=== PATIENT | female | born 2000 | race Caucasian/White ===

== ENCOUNTER 2021-03-28 09:10 | Emergency (ER) | payer MEDICAID ==
[~2021-03-28] VITALS: Ht 154.9 cm; Wt 61.2 kg
[2021-03-28 09:27] VITALS: BP 116/72
--- NOTE | 2021-03-28 09:32 | NUR ---
PT AMB TO BED 2
[2021-03-28] MEDS ORDERED: ACETAMINOPHEN EXTRA STRENGTH 500 MG TAB PO ONE (10:00)
[2021-03-28] MEDS ORDERED: FAMOTIDINE 20 MG TAB PO ONE (10:00)
--- NOTE | 2021-03-28 10:14 | NUR ---
21YO F BIB SELF C/O SUDDEN ONSET ABDOMINAL PAIN THAT RADIATES TO LOWER BACK/FLANK AREA. PAIN 9/10, SHARP. DENIES ANY PROBLEMS URINATING. DENIES N/V/D. DENIES ANY HX OF PREVIOUS INJURY OR ILLNESS. PATIENT STATES TO TAKE PEPTO AND TYLENOL WITH NO PAIN RELIEF, LAST TAKEN LAST NIGHT. LAST MENSTRUAL CYCLE WAS LAST MONTH. IN ED, VSS. ABDOMEN SOFT, NONTENDER. PT POSITIONED IN BED COMFORTABLY. ERMD MADE AWARE OF PT STATUS. PMH: NONE NKA
[2021-03-28 10:26] LABS: BASOPHILS % (AUTO) 0.4 % (0.0-2.0); EOSINOPHILS % (AUTO) 0.4 % (0.0-4.0); HEMATOCRIT 40.4 % (36-48); HEMOGLOBIN 13.7 g/dL (12.0-16.0); LYMPHOCYTES # (AUTO) 1.3 K/uL (2.5-16.5); LYMPHOCYTES % (AUTO) 11.8 % (20.5-51.1); MEAN CORPUSCULAR HEMOGLOBIN 32 pg (27-31); MEAN CORPUSCULAR HGB CONC 34 g/dL (33-37); MEAN CORPUSCULAR VOLUME 92.9 fL (80-94); MONOCYTES # (AUTO) 0.5 K/uL (0.8-1.0); MONOCYTES % (AUTO) 4.8 % (1.7-9.3); NEUTROPHILS # (AUTO) 9.1 K/uL (1.8-7.7); NEUTROPHILS % (AUTO) 82.6 % (42.2-75.2); PLATELET COUNT (AUTO) 250 K/uL (140-450); RED BLOOD CELL COUNT(AUTO) 4.35 MIL/uL (4.20-5.40); RED CELL DISTRIBUTION WIDTH 12.9 % (11.6-13.7); WHITE BLOOD COUNT (AUTO) 11.1 K/uL (4.5-11.0)
[2021-03-28 10:37] LABS: APPEARANCE,URINE CLOUDY (CLEAR); BILIRUBIN,URINE NEGATIVE (NEGATIVE); BLOOD, URINE TRACE-I (NEGATIVE); COLOR,URINE YELLOW (YELLOW); LEUKOCYTE ESTERASE ,URINE 2+ (NEGATIVE); NITRITE, URINE NEGATIVE (NEGATIVE); UGLUCOSE NEGATIVE (NEGATIVE)
[2021-03-28 10:37] LABS: ALBUMIN 3.6 g/dL (3.4-5.0); ANION GAP 11.9 (8-16); CARBON DIOXIDE 26.9 mmol/L (21-32); CREATININE 0.6 mg/dL (0.6-1.3); POTASSIUM 3.8 mmol/L (3.5-5.1); TOTAL BILIRUBIN 0.6 mg/dL (0.0-1.0)
[2021-03-28 11:07] LABS: RBC,URINE 0-5 /HPF (0-5)
[2021-03-28] MEDS ORDERED: FAMO-92 PO (11:26)
[2021-03-28] MEDS ORDERED: SULF-59 PO (11:26)
[2021-03-28 11:58] VITALS: BP 116/72
--- NOTE | 2021-03-28 11:59 | NUR ---
Patient discharged with v/s stable. Written and verbal after care instructions given and explained. Patient alert, oriented and verbalized understanding of instructions. Ambulatory with steady gait. All questions addressed prior to discharge. ID band removed. Patient advised to follow up with PMD. Rx of PEPCID, BACTRIM given. Patient educated on indication of medication including possible reaction and side effects. Opportunity to ask questions provided and answered.
== END 2021-03-28 11:59 | disposition home or self-care (01) ==
LOC: MED 09:10
DX: N39.0 Urinary tract infection, site not specified (principal)
CPT/HCPCS: 36415; 76705; 80053; 81001; 81025; 83690; 85025; 87086; 99284; Q0092